=== PATIENT | female | born 1945 | race Caucasian/White ===

== ENCOUNTER → 2017-12-19 13:25 | Outpatient (CLI) | payer MEDICARE, BC ==
[2015-05-21 11:12] VITALS: BMI 32.5
[~2017-12-19 13:25] MED LIST: ACETAMINOPHEN500 M1 PO; ASCORBIC ACID500 MG PO; BAYER CHEWABLE81 MG PO; CO Q-1050 MG; CRESTOR10 MG PO; EFFEXOR75 MG PO; ESGIC TABLET1 TAB PO; INDERAL10 MG PO; KLONOPIN1 MG PO; NEXIUM40 MG PO; SINGULAIR10 MG PO; VENTOLIN HFA18 GM INH; VITAMIN B-12250 MC3; VITAMIN D2000 UNIT; VITAMIN D31000 UNIT; ZYRTEC10 MG
== END | disposition home or self-care (01) ==
LOC: D.CT 13:25
DX: R11.0 Nausea (principal); R10.12 Left upper quadrant pain

== ENCOUNTER 2018-09-13 18:06 | Emergency (ER) | payer MEDICARE, BC ==
[~2018-09-13] VITALS: Ht 175.3 cm; Wt 97.7 kg
[2018-09-13 18:24] VITALS: Ht 175.3 cm; Wt 97.7 kg
[2018-09-13] MEDS ORDERED: PEPCID40 MG PO (18:28)
[2018-09-13] MEDS ORDERED: OMEPRAZOLE40 MG PO (18:28)
[2018-09-13 19:08] LABS: HEMATOCRIT 35.8 % (36.0-48.0); IMMATURE GRANULOCYTES 0.1 % (0-5); LYMPHOCYTES 27.5 % (15-50); MCH 30.6 pg (26.0-34.0); MCHC 33.5 g/dL (31.0-37.0); MCV 91.3 fL (80.0-100.0); MONOCYTES 9.7 % (2-11); NEUTROPHILS 58.7 % (40-80); PLATELET COUNT 300 10x3/uL (130-400); RBC 3.92 10x6/uL (4.00-5.40); RDW 13.8 % (11.5-14.5); WBC 8.3 10x3/uL (4.8-10.8)
[2018-09-13 19:15] LABS: APTT 28.3 SECONDS (22.8-39.4); INR 1.03 (0.85-1.17)
[2018-09-13 19:18] LABS: ALBUMIN 3.7 g/dL (3.4-5.0); ALKALINE PHOSPHATASE 93 U/L (46-116); ALT (SGPT) 16 U/L (10-68); BILIRUBIN - TOTAL 0.41 mg/dL (0.2-1.3); CALC OSMOLALITY 280 mosm/kg (275-300); CALCIUM 9.1 mg/dL (8.5-10.1); CARBON DIOXIDE 24.5 mmol/L (21.0-32.0); CHLORIDE - SERUM 105 mmol/L (98-107); GLUCOSE 102 mg/dL (74-106); POTASSIUM - SERUM 3.6 mmol/L (3.5-5.1); SODIUM 140 mmol/L (136-145); UREA NITROGEN 18 mg/dL (7-18); eGFR NON AFRICAN AMERICAN 58 mL/min (90-120)
[2018-09-13 19:37] LABS: CKMB 1.3 U/L (0.0-3.6); CREATINE KINASE 58 UL (21-215); MAGNESIUM - SERUM 1.8 mg/dL (1.8-2.4)
[2018-09-13 19:39] LABS: TROPONIN-I < 0.017 ng/mL (0.000-0.060)
[2018-09-13 20:22] LABS: AMYLASE - SERUM 48 U/L (25-115); LIPASE 242 U/L (73-393)
[2018-09-13 22:31] LABS: CKMB 0.9 U/L (0.0-3.6); CREATINE KINASE 47 UL (21-215)
[2018-09-13 22:32] LABS: TROPONIN-I < 0.017 ng/mL (0.000-0.060)
[2018-09-13] MEDS ORDERED: AUGMENTIN 875-11 TAB PO (23:37)
[2018-09-13 23:50] VITALS: BP 150/79
== END 2018-09-13 23:50 | disposition home or self-care (01) ==
LOC: D.ER 18:06
PROVIDERS: Family Medicine
DX: R07.9 Chest pain, unspecified (principal); R51 Headache; K21.9 Gastro-esophageal reflux disease without esophagitis; E78.5 Hyperlipidemia, unspecified